=== PATIENT | male | born 1995 | race Caucasian/White ===

== ENCOUNTER 2019-01-29 09:26 | Emergency (ER) | payer BC ==
--- NOTE | 2019-01-29 10:25 | RAD REPORT ---
EXAM DESCRIPTION: RAD - Chest Pa And Lat (2 Views) - 01/29/2019 10:13 am CLINICAL HISTORY: PAIN Chest pain. COMPARISON: Ribs Left dated 01/29/2019 FINDINGS: The lungs are clear. The heart is normal in size. No displaced fractures. IMPRESSION: No acute or concerning finding suspected.
--- NOTE | 2019-01-29 10:25 | RAD REPORT ---
EXAM DESCRIPTION: RAD - Ribs Left - 01/29/2019 10:13 am CLINICAL HISTORY: PAIN COMPARISON: Chest Pa And Lat (2 Views) dated 01/29/2019 FINDINGS: No displaced rib fracture or aggressive rib lesion seen. No pneumothorax. IMPRESSION: Right wrist series are
--- NOTE | 2019-01-29 11:12 | ER ---
Nurse's Notes [facility] Name: Tony Galaviz Age: 23 yrs Sex: Male : 1995 Arrival Date: 01/29/2019 Time: 09:31 Bed Treatment Private MD: None, None Diagnosis: Contusion of front wall of thorax Presentation: 01/29 09:36 Presenting complaint: Patient states: left side chest pain after slipping in the shower sv and felt a "pop" on the left rib cage area. c/o chest pain worse with deep breathing. Transition of care: patient was not received from another setting of care. Onset of symptoms was January 28, 2019. Care prior to arrival: None. 09:36 Method Of Arrival: Ambulatory sv 09:36 Acuity: GISELA 4 sv 11:29 Risk Assessment: Do you want to hurt yourself or someone else? Patient reports no ss desire to harm self or others. Initial Sepsis Screen: Does the patient meet any 2 criteria? No. Patient's initial sepsis screen is negative. Does the patient have a suspected source of infection? No. Patient's initial sepsis screen is negative. Triage Assessment: 09:36 General: Appears in no apparent distress. uncomfortable, slender, well developed, sv Behavior is calm, cooperative, appropriate for age. Pain: Complains of pain in anterior aspect of left upper chest and left lateral anterior chest Pain currently is 6 out of 10 on a pain scale. Pain began 1 day ago. Is intermittent, episodic, Aggravated by increased activity, deep breathing. Neuro: Level of Consciousness is awake, alert, obeys commands, Oriented to person, place, time, situation. Historical: - Allergies: 09:37 No Known Allergies; sv - PMHx: 09:37 None; sv - PSHx: 09:37 None; sv - Immunization history:: Adult Immunizations up to date. - Social history:: Smoking status: Patient uses tobacco products, vape. - Ebola Screening: : No symptoms or risks identified at this time. Screenin:28 Abuse screen: Denies threats or abuse. Denies injuries from another. Nutritional ss screening: No deficits noted. Tuberculosis screening: No symptoms or risk factors identified. Never had TB. Fall Risk None identified. Assessment: 11:15 General: Appears in no apparent distress. comfortable, Behavior is calm, cooperative, ss Denies fever, feeling ill, fatigue, chills. Pain: Complains of pain in left lateral anterior chest Pain does not radiate. Pain currently is 6 out of 10 on a pain scale. Quality of pain is described as aching, tender, Is continuous, Aggravated by repositioning. Neuro: Level of Consciousness is awake, alert, obeys commands, Oriented to person, place, time, situation. Cardiovascular: Capillary refill < 3 seconds is brisk in bilateral fingers Patient's skin is warm and dry. GI: Abdomen is non-distended, Patient currently denies abdominal pain, diarrhea, nausea, vomiting. : No signs and/or symptoms were reported regarding the genitourinary system. EENT: Nares are clear Oral mucosa is moist. Throat is clear. Derm: Skin is intact, is healthy with good turgor, Skin is dry, Skin is pink, warm \\T\\ dry. normal. 11:28 Reassessment: Patient appears in no apparent distress at this time. Patient and/or ss family updated on plan of care and expected duration. Pain level reassessed. Patient is alert, oriented x 3, equal unlabored respirations, skin warm/dry/pink. Neuro: Level of Consciousness is awake, alert. Respiratory: Respiratory effort is even, unlabored, Respiratory pattern is regular, symmetrical. Vital Signs: 09:37 BP 131 / 69; Pulse 78; Resp 18; Temp 98.2; Pulse Ox 98% ; Weight 68.04 kg; Height 6 ft. sv 1 in. (185.42 cm); Pain 6/10; 09:37 Body Mass Index 19.79 (68.04 kg, 185.42 cm) sv ED Course: 09:31 Patient arrived in ED. mr 09:31 None, None is Private Physician. mr 09:37 Triage completed. sv 09:38 Arm band placed on. sv 10:12 X-ray completed. Patient tolerated procedure well. Patient taken to chin ambulatory. mh1 10:14 Chest Pa And Lat (2 Views) XRAY In Process Unspecified. EDMS 10:14 Ribs Left XRAY In Process Unspecified. EDMS 10:47 Pavel Brown MD is Attending Physician. gs 11:17 Lynn Carvajal, ADEBAYO is Primary Nurse. ss 11:28 Patient has correct armband on for positive identification. Bed in low position. Call ss light in reach. Pulse ox on. 11:28 No provider procedures requiring assistance completed. Patient did not have IV access ss during this emergency room visit. Patient maintains SpO2 saturation greater than 95% on room air. Administered Medications: 11:18 Not Given (Patient Refused): TORadol 30 mg IM once ss Outcome: 11:11 Discharge ordered by . :28 Discharged to home ambulatory. ss 11:28 Condition: good :28 Discharge instructions given to patient, family, Instructed on discharge instructions, follow up and referral plans. medication usage, Demonstrated understanding of instructions, follow-up care, medications, Prescriptions given X 1. 11:29 Patient left the ED. Signatures: Dispatcher [employer] EDMS Alisa Santacruz, ADEBAYO FIORE Radha Anderson Deep[facility] Lynn Carvajal RN RN Pavel Brown MD MD
--- NOTE | 2019-01-29 11:13 | EDPHYS ---
Physician Documentation [facility] Name: Tony Galaviz Age: 23 yrs Sex: Male : 1995 Arrival Date: 01/29/2019 Time: 09:31 Bed Treatment Private MD: None, None ED Physician Pavel Brown HPI: 01/29 11:07 This 23 yrs old Male presents to ER via Ambulatory with complaints of Chest gs Pain, Arm Pain. 11:07 The patient or guardian reports chest pain that is located primarily in the anterior gs chest wall, left. The pain does not radiate. Associated signs and symptoms: Pertinent negatives: shortness of breath. The chest pain is described as sharp. Duration: The patient or guardian reports a single episode. Severity of pain: At its worst the pain was moderate in the emergency department the pain is unchanged. The patient has not experienced similar symptoms in the past, SLIPPED FELL IN SHOWER TWISTED HIT CHEST. 11:07 Modifying factors: the symptoms are aggravated by. Modifying factors: the symptoms are gs aggravated by deep breath, twisting torso. Historical: - Allergies: 09:37 No Known Allergies; sv - PMHx: 09:37 None; sv - PSHx: 09:37 None; sv - Immunization history:: Adult Immunizations up to date. - Social history:: Smoking status: Patient uses tobacco products, vape. - Ebola Screening: : No symptoms or risks identified at this time. ROS: 11:07 All other systems are negative. gs Exam: 11:07 Head/Face: Normocephalic, atraumatic. Eyes: Pupils equal round and reactive to light, gs extra-ocular motions intact. Lids and lashes normal. Conjunctiva and sclera are non-icteric and not injected. Cornea within normal limits. Periorbital areas with no swelling, redness, or edema. ENT: Nares patent. No nasal discharge, no septal abnormalities noted. Tympanic membranes are normal and external auditory canals are clear. Oropharynx with no redness, swelling, or masses, exudates, or evidence of obstruction, uvula midline. Mucous membranes moist. Neck: Trachea midline, no thyromegaly or masses palpated, and no cervical lymphadenopathy. Supple, full range of motion without nuchal rigidity, or vertebral point tenderness. No Meningismus. Cardiovascular: Regular rate and rhythm with a normal S1 and S2. No gallops, murmurs, or rubs. Normal PMI, no JVD. No pulse deficits. Respiratory: Lungs have equal breath sounds bilaterally, clear to auscultation and percussion. No rales, rhonchi or wheezes noted. No increased work of breathing, no retractions or nasal flaring. Abdomen/GI: Soft, non-tender, with normal bowel sounds. No distension or tympany. No guarding or rebound. No evidence of tenderness throughout. Back: No spinal tenderness. No costovertebral tenderness. Full range of motion. Skin: Warm, dry with normal turgor. Normal color with no rashes, no lesions, and no evidence of cellulitis. MS/ Extremity: Pulses equal, no cyanosis. Neurovascular intact. Full, normal range of motion. Neuro: Awake and alert, GCS 15, oriented to person, place, time, and situation. Cranial nerves II-XII grossly intact. Motor strength 5/5 in all extremities. Sensory grossly intact. Cerebellar exam normal. Normal gait. 11:07 Constitutional: The patient appears alert, awake. 11:07 Chest/axilla: Palpation: tenderness, that is mild, of the left clavicle, that totally reproduces the patient's complaints. Vital Signs: 09:37 BP 131 / 69; Pulse 78; Resp 18; Temp 98.2; Pulse Ox 98% ; Weight 68.04 kg; Height 6 ft. sv 1 in. (185.42 cm); Pain 6/10; 09:37 Body Mass Index 19.79 (68.04 kg, 185.42 cm) sv MDM: 11:04 Patient medically screened. gs 11:07 Differential diagnosis: chest wall pain, pneumothorax, RIB FX, PT REFUSED EKG AND gs TORADOL JUST WANTS DISCHARGE. Data reviewed: vital signs, nurses notes. 01/29 09:38 Order name: Chest Pa And Lat (2 Views) XRAY; Complete Time: 10:51 sv 01/29 09:45 Order name: Ribs Left XRAY; Complete Time: 10:51 kb Administered Medications: 11:18 Not Given (Patient Refused): TORadol 30 mg IM once ss Disposition: 01/29/19 11:11 Discharged to Home. Impression: Contusion of front wall of thorax. - Condition is Stable. - Discharge Instructions: Chest Contusion, Adult. - Prescriptions for Naprosyn 500 mg Oral Tablet - take 1 tablet by ORAL route 2 times per day . take with food; 20 tablet. - Work release form, Medication Reconciliation Form, Thank You Letter, Antibiotic Education, Prescription Opioid Use form. - Follow up: Private Physician; When: 1 - 2 days; Reason: Re-evaluation by your physician. Signatures: Dispatcher [employer] EDAlisa Garsia RN RN Lynn Carvajal RN RN Pavel Brown MD MD Corrections: (The following items were deleted from the chart) 11:10 11:07 Modifying factors: The symptoms are alleviated by nothing. the symptoms are gs aggravated by nothing. 11:18 11:03 EKG - Nurse/Tech ordered. [facility] 11:29 11:11 01/29/2019 11:11 Discharged to Home. Impression: Contusion of front wall of ss thorax. Condition is Stable. Forms are Medication Reconciliation Form, Thank You Letter, Antibiotic Education, Prescription Opioid Use. Follow up: Private Physician; When: 1 - 2 days; Reason: Re-evaluation by your physician.
[2019-01-29] MEDS ORDERED: KETOROLAC 30 MG/ML INJ ONE (11:21)
== END 2019-01-29 11:29 | disposition home or self-care (01) ==
LOC: ER 09:26
DX: S20.212A Contusion of left front wall of thorax, initial encounter (principal); W18.2XXA Fall in (into) shower or empty bathtub, initial encounter; Z72.0 Tobacco use
CPT/HCPCS: 71046; 99284